=== PATIENT | male | born 1995 | race Two or more races ===

== ENCOUNTER 2016-08-31 07:39 | Emergency (ER) | payer MEDICAID ==
[~2016-08-31] VITALS: Ht 180.3 cm; Wt 77.6 kg
[2016-08-31 07:41] VITALS: BP 142/68
[2016-08-31] MEDS ORDERED: HYDROcodone/APAP 5/325 TABLET ONE (07:56)
[2016-08-31] MEDS ORDERED: IBUPROFEN 200 MG TABLET PO ONE (08:00)
[2016-08-31] MEDS ORDERED: HYDROcodone/APAP 5/325 TABLET PO ONE (08:00)
== END 2016-08-31 09:12 | disposition home or self-care (01) ==
LOC: ED 09:06
DX: S62.324A Displaced fracture of shaft of fourth metacarpal bone, right hand, initial encounter for closed fracture (principal); S62.336A Displaced fracture of neck of fifth metacarpal bone, right hand, initial encounter for closed fracture; W22.01XA Walked into wall, initial encounter; Y93.89 Activity, other specified; Y92.89 Other specified places as the place of occurrence of the external cause; Y99.8 Other external cause status
CPT/HCPCS: 99284